=== PATIENT | male | born 1970 | race Caucasian/White ===

== ENCOUNTER → 2021-11-22 12:56 | Outpatient (BNVA) | payer BC, SELFPAY | PROVIDERS: Visit Provider Family Medicine | DX: M54.16 Radiculopathy, lumbar region (principal); F17.218 Nicotine dependence, cigarettes, with other nicotine-induced disorders; F43.10 Post-traumatic stress disorder, unspecified; I10 Essential (primary) hypertension; Z76.89 Persons encountering health services in other specified circumstances | CPT/HCPCS: 80053; 80061; 84153; 85025 ==

== ENCOUNTER → 2021-12-23 11:14 | Outpatient (BNVA) | payer BC, MEDICAID, SELFPAY | PROVIDERS: Referring Provider Family Medicine; Visit Provider Orthopaedic Surgery | DX: M48.062 Spinal stenosis, lumbar region with neurogenic claudication (principal) | CPT/HCPCS: 72110 ==

== ENCOUNTER 2022-02-09 07:08 | Outpatient (CLI) | payer BC, MEDICAID, SELFPAY ==
--- NOTE | 2022-02-09 07:15 | MR_ITS ---
WS: [id number] MRI LUMBAR SPINE NONCONTRAST HISTORY: back pain, extremity pain COMPARISON: Prior MRI lumbar spine 07/25/2011. Recent radiographs 12/23/2021 TECHNIQUE: Sagittal and axial multisequence imaging is submitted. C5-C6: Central disc protrusion contacts the ventral cord. Normal lumbar alignment with no compression fractures or marrow edema. Disc spaces and vertebral body heights are well-preserved. Conus terminates normally at L1-2 disc level. L1-L2: Mild disc bulging. Very slight asymmetric disc protrusion in the LEFT foramen. No significant stenosis or nerve root contact. L2-L3: Normal. L3-L4: Normal. L4-L5: Mild to moderate bilateral facet joint arthritis with ligamentum flavum hypertrophy. Mild LEFT foraminal stenosis due to disc bulging and facet arthritis. L5-S1: Mild facet joint arthritis. No focal disc protrusions. Paravertebral soft tissues are negative. MR/MR lumbar spine wo con* [id number] IMPRESSION: 1. No high-grade central or foraminal stenosis. 2. Mild to moderate facet joint arthritis at L4-5.
== END 2022-02-09 07:09 | disposition home or self-care (01) ==
LOC: RAD 07:09
PROVIDERS: Visit Provider Orthopaedic Surgery
DX: M47.816 Spondylosis without myelopathy or radiculopathy, lumbar region (principal)
CPT/HCPCS: 72148

== ENCOUNTER → 2022-05-18 11:47 | Outpatient (BNVA) | payer BC, MEDICAID, SELFPAY | PROVIDERS: Visit Provider Anesthesiology Pain Medicine | DX: M25.552 Pain in left hip (principal) | CPT/HCPCS: 73502 ==

== ENCOUNTER → 2022-08-22 11:30 | Outpatient (BNVA) | payer BC, MEDICAID, SELFPAY | PROVIDERS: PCP Family Medicine; Visit Provider Family Medicine | DX: K21.9 Gastro-esophageal reflux disease without esophagitis (principal); E78.2 Mixed hyperlipidemia; I10 Essential (primary) hypertension; E83.52 Hypercalcemia | CPT/HCPCS: 80053; 80061; 82306; 83036; 84443; 85025 ==

== ENCOUNTER → 2023-04-26 14:36 | Outpatient (BNVA) | payer BC, MEDICAID, SELFPAY | PROVIDERS: PCP Family Medicine; Visit Provider Nurse Practitioner | DX: M19.012 Primary osteoarthritis, left shoulder (principal) | CPT/HCPCS: 73030 ==

== ENCOUNTER 2023-05-15 09:49 | Outpatient (CLI) | payer BC, MEDICAID, SELFPAY ==
--- NOTE | 2023-05-15 09:56 | XRR_ITS ---
PROCEDURE INFORMATION: Exam: XR Cervical Spine Exam date and time: 05/15/2023 10:02 AM Age: 53 years old Clinical indication: Neck pain TECHNIQUE: Imaging protocol: Radiologic exam of the cervical spine. Views: 4 or 5 views. COMPARISON: CR XR shoulder LT min 2V* [id number] 04/26/2023 3:00 PM FINDINGS: Bones/joints: Mild disc space narrowing and spurring C5 through C7. Anatomic alignment. No fracture, lytic, or sclerotic bone lesion. No abnormal motion with flexion or extension. No acute fracture. Normal alignment. Soft tissues: Unremarkable. XR/XR cervical spine 4-5V [id number] IMPRESSION: Mild degenerative disc disease.
== END 2023-05-15 09:50 | disposition home or self-care (01) ==
LOC: RAD 09:50
PROVIDERS: PCP Family Medicine; Visit Provider Family Medicine
DX: M50.323 Other cervical disc degeneration at C6-C7 level (principal)
CPT/HCPCS: 72050

== ENCOUNTER → 2023-08-29 11:00 | Outpatient (BNVA) | payer BC, MEDICAID, SELFPAY | PROVIDERS: PCP Family Medicine; Visit Provider Family Medicine | DX: Z12.5 Encounter for screening for malignant neoplasm of prostate (principal); I10 Essential (primary) hypertension; E78.2 Mixed hyperlipidemia; M54.16 Radiculopathy, lumbar region | CPT/HCPCS: 80053; 80061; 85025; G0103 ==

== ENCOUNTER 2023-10-24 07:16 | Day surgery (SDC) | payer BC, MEDICAID, SELFPAY ==
--- NOTE | 2023-10-24 06:03 | W.PM.OPSUD ---
Surgery/Procedure H&P Update DATE OF PROCEDURE: October 24, 2023 DATE H&P PERFORMED: 09/27/23 H&P UPDATE INFORMATION: I have reviewed H&P completed within last 30 days, I have examined patient prior to procedure, No changes to prior documentation and H&P is in [facility] EMR on date indicated PLANNED PROCEDURE: Operation Date: 10/24/23 08:25 Proposed Procedures p EGD Dilation W/ Balloon 71266, 09597, G0121, R13.19, K21.9, Z12.11(Not Applicable) - Gino Mohamud MD s Colonoscopy(Not Applicable) - Gino Mohamud MD
[2023-10-24 07:28] VITALS: BP 132/100; PULSE 101; RESP 18; TEMP 36.6; O2SAT 96; BMI 30.2
[2023-10-24] MEDS: sodium chloride 0.9% 1,000 ML 30 ML IV (07:32)
--- NOTE | 2023-10-24 07:40 | ANES.PREANE2 ---
Pre-Anesthetic Assessment Height/Weight: Height 1.75 m Weight 92.986 kg Temp Pulse Resp BP Pulse Ox O2 Del Method 97.9 F 101 H 18 132/100 96 Room Air 10/24/23 07:28 10/24/23 07:28 10/24/23 07:28 10/24/23 07:28 10/24/23 07:28 10/24/23 07:28 Preop Diagnosis: GERD Dysphagia Operation Date: 10/24/23 08:25 Proposed Procedures p EGD Dilation W/ Balloon 69320, 18247, G0121, R13.19, K21.9, Z12.11(Not Applicable) - Gino Mohamud MD s Colonoscopy(Not Applicable) - Gino Mohamud MD Familial anesthetic complications: none Last intake: Intake Last Liquid Date 10/23/23 Last Liquid Time 22:00 Last Solid Date 10/22/23 Last Solid Time 17:00 Social Tobacco Marijuana 10/23/23 Exam alert, oriented x 3, clear to auscultation bilaterally and regular rate & rhythm Airway Submandibular: within normal limits Cervical ROM: within normal limits Mallampati: Class II Dentition: partials Comments: Comments: no front teeth Pulmonary Chronic Obstructive Pulmonary Disease and Sleep Apnea (patient reports apnea but no sleep study performed.) CV/HEM Hypertension None reported Hepatic None reported GI Gastroesophageal Reflux Disease Metabolic Hyperlipidemia Musc/skel Lower Back Pain (previous nerve ablation) and None reported Neuropsych Anxiety and Depression Anesthetic Plan ASA status: 3 Anesthesia: MAC Other: 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 Medications/Allergies Home Medications Medication Instructions Recorded Confirmed Last Taken Type loratadine 10 mg tablet (Claritin) 10 mg PO DAILY 02/28/22 10/19/23 10/23/23 History marijuana 1 puff PO DAILY 02/28/22 10/19/23 10/23/23 History albuterol sulfate 90 mcg/actuation 2 inh inhalation Q4H PRN shortness 08/06/23 10/19/23 10/23/23 Rx aerosol inhaler of breath or wheezing #6.7 grams atorvastatin 40 mg tablet 40 mg PO DAILY 10/19/23 10/19/23 10/23/23 History lisinopril 10 mg tablet 10 mg PO DAILY 10/19/23 10/19/23 10/23/23 History omeprazole 20 mg capsule,delayed 20 mg PO DAILY 10/19/23 10/19/23 10/23/23 History release cetirizine 5 mg tablet 5 mg PO DAILY PRN Allergy Symptoms 10/24/23 10/24/23 10/22/23 History Allergies Allergy/AdvReac Type Severity Reaction Status Date / Time acetaminophen [From Percocet] Allergy Severe ADR-Dizzine Verified 10/19/23 08:54 ss oxycodone [From Percocet] Allergy Severe ADR-Dizzine Verified 10/19/23 08:54 ss Penicillins Allergy Severe ALGY-Rash Verified 10/19/23 08:54 Current Medications Generic Name Dose Route Start Last Admin Trade Name Freq PRN Reason Stop Dose Admin Sodium Chloride 1,000 mls @ 30 mls/hr 10/24/23 07:30 10/24/23 07:32 Sodium Chloride 0.9% IV 30 mls/hr .Q24H LISBETH Administration PFSH Anesthesia Family History Grandfather Cancer prostate Father Diabetes Grandmother Lung disease Brother Psychiatric illness bi-polar Denies family history of CAD (coronary artery disease) Clotting disorder Dementia Hyperlipidemia Chronic kidney disease (CKD) Suicide Anesthesia complication Bleeding disorder Family history of premature coronary artery disease Hypertension Stroke Social History Smoking and tobacco/nicotine status: current every day tobacco/nicotine user Data Anesthesia Cardiac Studies: No Data to Display
[2023-10-24 09:42] VITALS: BP 129/84; PULSE 81; RESP 20; TEMP 36.4; O2SAT 95
[2023-10-24 09:52] VITALS: BP 110/83; PULSE 84; RESP 16; O2SAT 96
[2023-10-24 10:02] VITALS: BP 119/78; PULSE 80; RESP 16; O2SAT 97
--- NOTE | 2023-10-24 10:20 | ANE.PACU2 ---
Inpatient post-anesthesia follow up: Airway intact: Yes Vital signs: Temperature 97.6 F Pulse Rate 80 Respiratory Rate 16 Blood Pressure 119/78 Pulse Oximetry 97 Oxygen Delivery Me thod Room Air Oxygen Flow Rate 2 Fraction of Inspir ed Oxygen Hydration adequate: Yes Nausea and vomiting: No Pain level: 1 Mental status: Baseline
== END 2023-10-24 10:21 | disposition home or self-care (01) ==
PROVIDERS: PCP Family Medicine; Visit Provider Surgery
PROC: 0DJD8ZZ Inspection of Lower Intestinal Tract, Via Natural or Artificial Opening Endoscopic (ICD-10-PCS; CPT 45378; 2023-10-24 08:25)
DX: Z12.11 Encounter for screening for malignant neoplasm of colon (principal); K21.9 Gastro-esophageal reflux disease without esophagitis; R13.19 Other dysphagia; K29.50 Unspecified chronic gastritis without bleeding; D12.2 Benign neoplasm of ascending colon; D12.5 Benign neoplasm of sigmoid colon; D12.3 Benign neoplasm of transverse colon; D12.8 Benign neoplasm of rectum; J44.9 Chronic obstructive pulmonary disease, unspecified; G47.30 Sleep apnea, unspecified; I10 Essential (primary) hypertension; E78.5 Hyperlipidemia, unspecified; F17.200 Nicotine dependence, unspecified, uncomplicated
CPT/HCPCS: 43239; 45380; 45385; 88305; J2704; J7030

== ENCOUNTER 2023-12-12 08:52 | Outpatient (CLI) | payer BC, MEDICAID, SELFPAY ==
--- NOTE | 2023-12-12 08:57 | XR_ITS ---
WS: [id number] Exam: XR hip LT 2-3V wo/w pel* [id number] Date/Time of Exam: 12/12/2023 9:00 AM Reason For Exam: LEFT HIP JOINT PAIN Comparison 05/18/2022. No acute fracture or dislocation. The joint compartment is preserved. Mild degenerative changes super ior acetabulum. XR/XR hip LT 2-3V wo/w pel* [id number] IMPRESSION: 1. Mild degenerative change of the acetabulum. No fracture or other significant finding.
--- NOTE | 2023-12-12 08:57 | XR_ITS ---
WS: [email or web address] Exam: XR shoulder RT min 2V* [id number] Date/Time of Exam: 12/12/2023 9:00 AM Reason For Exam: R SHOULDER JOINT PAIN No acute fracture or dislocation. Degenerative change of the AC joint. Bone spurring along the inferi or margin of the distal clavicle. Normal soft tissues. XR/XR shoulder RT min 2V* [id number] IMPRESSION: 1. Degenerative changes and bone spurring at the AC joint as noted above.
== END 2023-12-12 08:53 | disposition home or self-care (01) ==
LOC: RAD 08:53
PROVIDERS: PCP Family Medicine; Visit Provider Family Medicine
DX: M19.011 Primary osteoarthritis, right shoulder (principal); M25.711 Osteophyte, right shoulder; M25.551 Pain in right hip
CPT/HCPCS: 73030; 73502

== ENCOUNTER → 2023-12-15 10:46 | Outpatient (BNVA) | payer BC, MEDICAID, SELFPAY | PROVIDERS: PCP Family Medicine; Visit Provider Nurse Practitioner | DX: M19.011 Primary osteoarthritis, right shoulder (principal) | CPT/HCPCS: 73030 ==

== ENCOUNTER 2024-04-09 09:58 | Outpatient (CLI) | payer BC, MEDICAID, SELFPAY ==
--- NOTE | 2024-04-09 10:15 | MR_ITS ---
WS: [id number] MRI RIGHT SHOULDER HISTORY: rt shoulder pain COMPARISON: Shoulder radiograph 12/15/2023 TECHNIQUE: Multiplanar sequences of the shoulder joint are submitted. Moderate AC joint arthritis. Narrowing of the AC joint with a 6 mm osteophyte encroaching upon the moss praspinatus tendon and muscle. Small erosions involving the distal clavicle. Small osteophyte from th e undersurface of the acromion with mild impingement. No subacromial subdeltoid bursal fluid. No os a cromion. Normal position of the biceps tendon. Mild narrowing of the glenohumeral joint. Small subchondral cyst along the posterior superior humeral head. No fluid in the axillary pouch. No muscle atrophy or edema. Very minimal focal tendinopathy in the distal supraspinatus tendon, just distal to the subacromial impingement. There is increased T2 s ignal with mild thickening of the distal subscapularis tendon at the level of the coracohumeral inter amaris. No tear. No labral tear. MR/MR shoulder RT wo con* [id number] IMPRESSION: 1. Moderate AC joint arthritis with a 6 mm osteophyte encroaching upon and def orming the supraspinatus tendon. 2. Small osteophyte causing mild subacromial impingement from the undersurface of the acromion. 3. Minimal focal tendinopathy in the distal supraspinatus tendon. 4. Moderate distal subscapularis tendinopathy. 5. No labral tear.
== END 2024-04-09 09:59 | disposition home or self-care (01) ==
LOC: RAD 09:59
PROVIDERS: PCP Family Medicine; Visit Provider Nurse Practitioner
DX: M13.811 Other specified arthritis, right shoulder (principal); M25.711 Osteophyte, right shoulder; R93.6 Abnormal findings on diagnostic imaging of limbs
CPT/HCPCS: 73221

== ENCOUNTER → 2024-04-17 10:15 | Outpatient (BNVA) | payer BC, MEDICAID, SELFPAY | PROVIDERS: PCP Family Medicine; Visit Provider Nurse Practitioner | DX: Z01.818 Encounter for other preprocedural examination (principal) | CPT/HCPCS: 36415; 80053; 81001; 85025 ==

== ENCOUNTER 2024-05-21 07:25 | Day surgery (SDC) | payer BC, MEDICAID, SELFPAY ==
[2024-05-21] VITALS (8 sets, daily range): BP systolic 94–115; BP diastolic 61–84; PULSE 78–90; RESP 16–17; TEMP 36.3; O2SAT 91–99; BMI 31.0
[2024-05-21] MEDS: sodium chloride 0.9% 1,000 ML 30 ML IV (08:03)
[2024-05-21] MEDS: gabapentin 300 mg Capsule PO (08:04)
[2024-05-21] MEDS: CELEcoxib 200 mg Capsule 400 MG PO (08:04)
--- NOTE | 2024-05-21 08:06 | ANES.PREANE2 ---
Pre-Anesthetic Assessment Height/Weight: Height 1.75 m Weight 95.254 kg O2 Del Method Room Air 05/21/24 07:52 Operation Date: 05/21/24 09:20 Proposed Procedures p Acromioplasty(Right) - Marcela Wilkerson MD s Distal Clavicle Resection(Right) - Marcela Wilkerson MD s Debridement Upper Extremity/ shoulder(Right) - Marcela Wilkerson MD Familial anesthetic complications: None Was Beta Ozzy taken within 24 hours: N/A Was Clonidine taken within 24 hours: N/A Last intake: Intake Last Liquid Date 05/20/24 Last Liquid Time 22:00 Last Solid Date 05/20/24 Last Solid Time 19:00 Social No alcohol and No tobacco Exam alert, oriented x 3, clear to auscultation bilaterally and regular rate & rhythm Airway Mallampati: Class II Dentition: full CV/HEM Hypertension GI Gastroesophageal Reflux Disease Metabolic Hyperlipidemia Anesthetic Plan ASA status: 2 Anesthesia: General and Regional (specify below) Risk of > 500 ml blood loss (7ml/kg in children): No Medications/Allergies Home Medications ?Medication ?Instructions ?Recorded ?Confirmed ?Last Taken ?Type loratadine 10 mg tablet (Claritin) 10 mg PO DAILY 02/28/22 05/20/24 05/20/24 History marijuana 1 puff PO DAILY 02/28/22 05/20/24 05/20/24 History albuterol sulfate 90 mcg/actuation 2 inh inhalation Q4H PRN shortness 08/06/23 05/20/24 10/23/23 Rx aerosol inhaler of breath or wheezing #6.7 grams atorvastatin 40 mg tablet 40 mg PO DAILY 10/19/23 05/20/24 05/20/24 History lisinopril 10 mg tablet 20 mg PO DAILY 04/16/24 05/20/24 05/20/24 History montelukast 10 mg tablet 10 mg PO DAILY 05/08/24 05/20/24 05/20/24 History ibuprofen 800 mg tablet 800 mg PO TID PRN pain #90 tabs 05/16/24 05/20/24 05/13/24 Rx omeprazole 20 mg capsule,delayed 20 mg PO DAILY 05/20/24 05/20/24 05/20/24 History release tizanidine 4 mg capsule 4 mg PO BEDTIME PRN muscle relaxer 05/20/24 05/20/24 05/19/24 History Allergies Allergy/AdvReac Type Severity Reaction Status Date / Time acetaminophen (From Percocet) Allergy Severe ADR-Dizzine Verified 05/20/24 12:38 ss oxycodone (From Percocet) Allergy Severe ADR-Dizzine Verified 05/20/24 12:38 ss Penicillins Allergy Severe ALGY-Rash Verified 05/20/24 12:38 Current Medications Generic Name Dose Route Start Last Admin Trade Name Sergioq PRN Reason Stop Dose Admin Sodium Chloride 1,000 mls @ 30 mls/hr 05/21/24 07:45 05/21/24 08:03 Sodium Chloride 0.9% IV 05/22/24 07:44 30 mls/hr .Q24H LISBETH Administration PFSH Anesthesia Medical History Weakness of right shoulder Osteoarthritis of right acromioclavicular joint Right shoulder pain Family History Grandfather Cancer prostate Father Diabetes Grandmother Lung disease Brother Psychiatric illness bi-polar Denies family history of CAD (coronary artery disease) Clotting disorder Dementia Hyperlipidemia Chronic kidney disease (CKD) Suicide Anesthesia complication Bleeding disorder Family history of premature coronary artery disease Hypertension Stroke Social History Smoking and tobacco/nicotine status: current every day tobacco/nicotine user Data Anesthesia Cardiac Studies: No Data to Display
--- NOTE | 2024-05-21 08:24 | ANES.PROC ---
Anesthesia Procedures Procedure/Date: 05/21/24 Nerve Block ^: Nerve Block 1: Main Anesthesia: general anesthesia Time Out Performed: Yes Consent: requested by attending/covering physician, from patient, from other, risks and benefits reviewed and patient agrees to proceed Nerve block location: interscalene (R) Anesthesia monitors applied: pulse oximetry, EKG, BP cuff and oxygen Nerve block position: semi sitting Anesthetic Used: ropivicaine 0.5% (20 ml) and with decadron (4 mg) Ultrasound used to: recognize landmarks, visualize and ID brachial plexus, in supraclavicular region and visualize and ID interscalene groove Nerve Stimulator Used?: No Interscalene/Femoral BLK: 2 stimuplex 22 g needle used for position and inplane approach, visualize local anesthetic spread and no vascular puncture identified Patient Tolerated Procedure: well Complications: none
[2024-05-21] MEDS: acetaminophen 1,000 MG/100 ML PIGGYBACK 400 MG IV (08:25)
--- NOTE | 2024-05-21 08:42 | P.HPUD_ITS ---
Surgery/Procedure H&P Update DATE OF PROCEDURE: May 21, 2024 DATE H&P PERFORMED: 05/08/24 H&P UPDATE INFORMATION: I have reviewed H&P completed within last 30 days, I have examined patient prior to procedure, No changes to prior documentation and H&P is in [facility] EMR on date indicated CHANGES TO PREVIOUS DOCUMENTATION: MRI noncontrast right shoulder April 09, 2024 IMPRESSION: 1. Moderate AC joint arthritis with a 6 mm osteophyte encroaching upon and deforming the supraspinatus tendon. 2. Small osteophyte causing mild subacromial impingement from the undersurface of the acromion. 3. Minimal focal tendinopathy in the distal supraspinatus tendon. 4. Moderate distal subscapularis tendinopathy. 5. No labral tear. PRIMARY INDICATION FOR PROCEDURE: Impingement and tendinopathy right shoulder with osteoarthritis right acromioclavicular joint PLANNED PROCEDURE: Operation Date: 05/21/24 09:20 Proposed Procedures p Acromioplasty(Right) - Marcela Wilkerson MD s Distal Clavicle Resection(Right) - Marcela Wilkerson MD s Debridement Upper Extremity/ shoulder(Right) - Marcela Wilkerson MD Related Problem List Diagnoses (1) Impingement of right shoulder: (2) Osteoarthritis of right acromioclavicular joint: (3) Tendinopathy of right rotator cuff:
[2024-05-21] MEDS: clindamycin 600 MG/50 ML PREMIX 100 MG IV (08:46)
--- NOTE | 2024-05-21 08:48 | PC.NURSE ---
0822: timout performed by kevin 20 ml 0f .5% ropivicaine injected in right shoulder block using ultrasound guidance. patient tolerated well
[2024-05-21] MEDS: vancomycin 1,000 MG SDV 1000 MG IRRIGATION (10:02)
--- NOTE | 2024-05-21 10:47 | P.OP_ITS ---
Operative Report Date of procedure: May 21, 2024 Pre-op diagnosis: Right shoulder impingement with acromioclavicular joint osteoarthritis and bursitis Post-op diagnosis: Right shoulder impingement with acromioclavicular joint osteoarthritis and bursitis Post-op findings: Significant impingement and degenerative osteoarthritis of the acromioclavicular joint with bursitis Procedure done: Right shoulder open acromioplasty, distal clavicle resection with bursectomy and evaluation of rotator cuff Implants: None Specimens removed/disposition: Acromion, disposed of Pathology: None Surgeon: Marcela Wilkerson MD [employer] Foreman: HAYDEN Gimenez, who services were required for positioning, retraction, exposure, and closure. Estimated blood loss (mL): 10 IV fluids (mL): 800 Urine output (mL): 0 (No Grover) Complications: None Findings: Severe impingement from acromion with significant acromioclavicular joint osteoarthritis. Very thickened bursal tissue. Condition: stable Disposition: PACU Brief History: This 54-year-old gentleman presented to the clinic complaining of severe right shoulder pain. He had also feelings of instability along with the pain and discomfort. The patient had taken anti-inflammatories, had previous corticosteroid injection, and completed a home therapy program. MRI demonstrated moderate acromioclavicular joint osteoarthritis with a large spur deforming the supraspinatus tendon as well as focal tendinopathy in the distal supraspinatus tendon, an osteophyte on the undersurface of the acromion, and moderate distal subscapularis tendinopathy. There was noted to be no labral tear. After discussion, the patient wished to proceed with operative intervention. Risks and complications were discussed with him, and consents were signed. He was given the opportunity to have questions answered. The patient was seen in the preoperative holding area and once again discussion of the surgical procedure was undertaken with him. He was given the opportunity to ask and have questions answered. Procedure: The patient was brought to the operating theater and underwent general intubated anesthesia, ASA 2 with supplemental interscalene block. The patient was placed in a beachchair position and subsequently the right upper extremity was prepped and draped in the usual fashion utilizing DuraPrep. The arm was draped free. A surgical pause was performed prior to commencement of the surgical procedure. At the time of the surgical pause, we confirmed the site and side of surgery as well as administration of appropriate preoperative antibiotics clindamycin 600 mg. MRI was also reviewed at that time. Following the surgical pause, an incision was made at approximately the level of the acromioclavicular joint extending across the anterolateral corner of the acromion and distally as necessary. Care was taken to avoid injury to the axillary nerve by limiting the distal extent of the incision. Dissection continued through skin and soft tissues using a scalpel. A larger incision was required secondary to the patient's subcutaneous tissues. Hemostasis was obtained using electrocautery. The acromioclavicular joint was exposed. A saw was then used to resect the distal clavicle without difficulty. The undersurface of the clavicle was palpated and was slightly further debrided. A power rasp was used to further smooth the area. When this was felt to be adequately resected, the wound was irrigated. Soft tissues were elevated off the acromion. An acromioplasty was then accomplished using a combination of a saw and a power rasp. With this, we were able to remove compression caused by the acromion. The rotator cuff was then evaluated to look for tears. There was no evidence of rotator cuff tear, but there was very inflamed and thickened bursal tissue which was excised. The rotator cuff was evaluated through full internal and external rotation as well as AB and adduction without evidence of tear. Following the acromioplasty, there was significant relief of impingement. Attention was then directed to closure. The wound was irrigated and closure was accomplished with 0 Vicryl in the capsular tissues overlying the acromioclavicular joint area as well as over the acromion and down into the deltoid muscle. 3-0 Monocryl was used to close the subcutaneous tissues followed by 4-0 Monocryl subcuticular closure. This was followed by Dermabond, Steri-Strips, and an OpSite. The patient was placed in a sling. He was returned to the recovery room in satisfactory condition. The patient will be discharged to home to follow-up in the office as scheduled. There were no complications and no specimens. Related Problem List Diagnoses (1) Impingement of right shoulder: (2) Osteoarthritis of right acromioclavicular joint: (3) Bursitis of right shoulder:
[2024-05-21] MEDS: HYDROcodone-acetaminophen 5-325 mg Tablet 1 TAB PO (11:53)
--- NOTE | 2024-05-21 12:15 | ANE.PACU2 ---
Inpatient post-anesthesia follow up: Airway intact: Yes Vital signs: Temperature 97.3 F Pulse Rate 87 Respiratory Rate 17 Blood Pressure 102/84 Pulse Oximetry 94 Oxygen Delivery Me thod Room Air Oxygen Flow Rate 8 Fraction of Inspir ed Oxygen Hydration adequate: Yes Nausea and vomiting: No Pain level: 1 Mental status: Baseline
== END 2024-05-21 12:19 | disposition home or self-care (01) ==
PROVIDERS: PCP Family Medicine; Visit Provider Specialist
PROC: (CPT 23130; principal; 2024-05-21 09:10)
PROC: (CPT 23120; 2024-05-21 09:10)
PROC: (CPT 23130; 2024-05-21 09:10)
DX: M75.41 Impingement syndrome of right shoulder (principal); M19.011 Primary osteoarthritis, right shoulder; M75.51 Bursitis of right shoulder; I10 Essential (primary) hypertension; K21.9 Gastro-esophageal reflux disease without esophagitis; E78.5 Hyperlipidemia, unspecified; Z79.899 Other long term (current) drug therapy; Z88.2 Allergy status to sulfonamides; Z88.5 Allergy status to narcotic agent; F17.210 Nicotine dependence, cigarettes, uncomplicated
CPT/HCPCS: 23130; 23120; J0131; J1100; J2250; J2371; J2405; J2704; J2795; J3010; J3370; J3490; J7030

== ENCOUNTER → 2024-09-26 08:09 | Outpatient (BNVA) | payer BC, MEDICAID, SELFPAY | PROVIDERS: PCP Family Medicine; Visit Provider Internal Medicine | DX: R79.89 Other specified abnormal findings of blood chemistry (principal) | CPT/HCPCS: 80053; 83001; 83002; 83036; 84146; 84402; 84403; 85025 ==

== ENCOUNTER 2024-10-29 08:26 | Outpatient (CLI) | payer BC, MEDICAID, SELFPAY ==
[2024-10-29 09:10] LABS: Hematocrit 40.5 % (37-53); Hemoglobin 13.40 g/dL (11.27-16.99); Mean Corpuscular HGB Conc 33.1 g/dL (30-55); Mean Corpuscular Hemoglobin 28.3 pg (27-33); Mean Corpuscular Volume 85.6 fl (82-101); Nucleated Red Blood Cells % 0 %; Platelet Count 263 10^3/cmm (157-399); Red Blood Count 4.73 10^6/uL (3.85-5.65); White Blood Count 7.00 10^3/uL (3.29-11.43)
[2024-10-29 09:47] LABS: Alanine Aminotransferase 24 U/L (0-41); Albumin Level 4.4 g/dL (3.5-5.2); Alkaline Phosphatase 56 U/L (40-130); Anion Gap 11.8 (5-19); Aspartate Amino Transferase 19 U/L (0-40); Blood Urea Nitrogen 12 mg/dL (6-20); Calcium 8.8 mg/dL (8.5-10.5); Carbon Dioxide 30 mmol/L (22-29); Chloride 105 mmol/L (98-107); Cholesterol 150 mg/dL (0-200); Follicle Stimulating Hormone 2.6 mIU/mL (1.5-12.4); Globulin 2.4 g/dL (1.3-4.6); Glucose 110 mg/dL (65-115); HDL Cholesterol 34 mg/dL (60-100); Osmolality Calculated 296 mOsm/kg (285-295); Potassium 3.8 mmol/L (3.5-5.1); Sodium 143 mmol/L (136-145); Total Protein 6.8 g/dL (6.6-8.7); Triglycerides 130 mg/dL (0-150)
== END 2024-10-29 08:27 | disposition home or self-care (01) ==
PROVIDERS: PCP Family Medicine; Visit Provider Internal Medicine
DX: R73.03 Prediabetes (principal); R23.2 Flushing; E78.2 Mixed hyperlipidemia
CPT/HCPCS: 36415; 80053; 80061; 83001; 83002; 84146; 84402; 84403; 85025

== ENCOUNTER → 2024-12-18 07:58 | Outpatient (BNVA) | payer BC, MEDICAID, SELFPAY | PROVIDERS: PCP Family Medicine; Visit Provider Internal Medicine | DX: R73.03 Prediabetes (principal); R23.2 Flushing | CPT/HCPCS: 80053; 80061; 84153; 84403; 85025 ==

== ENCOUNTER 2025-02-18 09:34 | Outpatient (CLI) | payer BC, MEDICAID, SELFPAY ==
[2025-02-18 10:04] LABS: Hematocrit 44.7 % (37-53); Hemoglobin 14.80 g/dL (11.27-16.99); Mean Corpuscular HGB Conc 33.1 g/dL (30-55); Mean Corpuscular Hemoglobin 28.4 pg (27-33); Mean Corpuscular Volume 85.8 fl (82-101); Nucleated Red Blood Cells % 0 %; Platelet Count 241 10^3/cmm (157-399); Red Blood Count 5.21 10^6/uL (3.85-5.65); White Blood Count 9.49 10^3/uL (3.29-11.43)
[2025-02-18 10:28] LABS: Alanine Aminotransferase 50 U/L (0-41); Albumin Level 4.7 g/dL (3.5-5.2); Alkaline Phosphatase 71 U/L (40-130); Anion Gap 12.9 (5-19); Aspartate Amino Transferase 37 U/L (0-40); Blood Urea Nitrogen 11 mg/dL (6-20); Calcium 9.3 mg/dL (8.5-10.5); Carbon Dioxide 32 mmol/L (22-29); Chloride 100 mmol/L (98-107); Cholesterol 183 mg/dL (0-200); Globulin 2.5 g/dL (1.3-4.6); Glucose 111 mg/dL (65-115); HDL Cholesterol 34 mg/dL (60-100); Osmolality Calculated 292 mOsm/kg (285-295); Potassium 3.9 mmol/L (3.5-5.1); Sodium 141 mmol/L (136-145); Total Protein 7.2 g/dL (6.6-8.7); Triglycerides 446 mg/dL (0-150)
[2025-02-18 10:48] LABS: Prostate Specific Antigen 0.767 ng/mL (0-4)
== END 2025-02-18 09:35 | disposition home or self-care (01) ==
LOC: LAB 09:35
PROVIDERS: PCP Family Medicine; Visit Provider Internal Medicine
DX: R23.2 Flushing (principal); R73.03 Prediabetes
CPT/HCPCS: 36415; 80053; 80061; 83721; 84153; 84403; 85025